=== PATIENT | female | born 1985 | race Caucasian/White ===

== ENCOUNTER 2019-02-16 02:27 | Emergency (ER) | payer OTHER ==
[~2019-02-16] VITALS: Ht 167.6 cm; Wt 59.0 kg
--- NOTE | 2019-02-16 02:49 | NUR ---
MD AT BEDSIDE FOR HX AND PHYSICAL PT S/P SLIPPED ON A NEWLY MOPPED FLOOR AND HIT THE BACK OF HER HEAD PT ABLE TO SPEAK CLEAR AND COMPLETE SENTENCES -NVD -PAIN -SOB NOT IN APPARENT DISTRESS, DENIES FEVERS/CHILLS, NO RECENT TRAVELS PT AMBULATORY
--- NOTE | 2019-02-16 02:52 | NUR ---
Patient discharged to home in stable conditon. Written and verbal after care instructions given. Patient verbalizes understanding of instructions. AMBULATORY W STABLE GAIT
[2019-02-16 02:54] VITALS: BP 127/73
== END 2019-02-16 02:55 | disposition home or self-care (01) ==
LOC: ER 02:36
DX: S09.90XA Unspecified injury of head, initial encounter (principal); W01.198A Fall on same level from slipping, tripping and stumbling with subsequent striking against other object, initial encounter; Y93.89 Activity, other specified; Y92.89 Other specified places as the place of occurrence of the external cause; Y99.8 Other external cause status
CPT/HCPCS: A4663

== ENCOUNTER 2019-02-26 02:11 | Emergency (ER) | payer OTHER ==
[~2019-02-26] VITALS: Ht 160 cm; Wt 63.5 kg
--- NOTE | 2019-02-26 02:20 | NUR ---
Dr. Hanks at bedside for MSE.
--- NOTE | 2019-02-26 02:33 | NUR ---
Pt out of ER for CT.
--- NOTE | 2019-02-26 02:47 | NUR ---
PT back to ER from CT.
--- NOTE | 2019-02-26 03:21 | NUR ---
Patient discharged to home in stable conditon. Written and verbal after care instructions given. Patient verbalizes understanding of instructions. Pt ambulated out of ER with steady gait, no acute signs of distress, VSS, all belongings taken.
[2019-02-26 03:22] VITALS: BP 130/86
== END 2019-02-26 03:22 | disposition home or self-care (01) ==
LOC: ER 02:12
DX: R04.0 Epistaxis (principal); F07.81 Postconcussional syndrome
CPT/HCPCS: 70450; 72125; A4663